=== PATIENT | female | born 1935 | race Caucasian/White ===

== ENCOUNTER 2017-10-06 20:01 | Observation (INO) | payer OTHER ==
[~2017-10-06] VITALS: Ht 160 cm; Wt 86.3 kg
[2017-10-06 21:14] LABS: BASOPHIL (%) 0.4 % (0-1); BASOPHIL COUNT 0.1 K/uL (0-0.1); EOSINOPHIL (%) 2.5 % (0-5); EOSINOPHIL COUNT 0.3 K/uL (0-0.3); HEMATOCRIT 32.5 % (36.0-46.0); HEMOGLOBIN 10.2 G/DL (11.9-15.5); IMMATURE GRANULOCYTE (%) 0.4 % (0.0-0.7); LYMPHOCYTE (%) 20.7 % (15-42); LYMPHOCYTE COUNT 2.8 K/uL (1.0-2.8); MCH 26.5 PG (29.0-34.0); MCHC 31.4 G/DL (30.0-36.0); MCV 84.4 FL (83-99); MONOCYTE (%) 6.3 % (3-12); MONOCYTE COUNT 0.9 K/uL (0-0.8); NEUTROPHIL (%) 69.7 % (45-76); NEUTROPHIL COUNT 9.4 K/uL (1.8-6.4); PLATELET COUNT 282 K/uL (156-360); RBC DIS.WIDTH-CV 15.7 % (11.8-14.6); RED BLOOD COUNT 3.85 M/uL (3.80-5.20); WHITE BLOOD COUNT 13.5 K/uL (4.1-10.2)
[2017-10-06 21:24] LABS: ALBUMIN 3.8 g/dL (3.2-4.8); CHLORIDE 108 mEq/L (99-109); POTASSIUM 3.5 mEq/L (3.7-5.4); SODIUM 141 mEq/L (136-147)
[2017-10-06 21:26] LABS: TOTAL PROTEIN 7.3 g/dL (6.4-8.3)
[2017-10-06 21:28] LABS: TOTAL BILIRUBIN 0.5 mg/dL (0.0-1.0)
[2017-10-06 21:30] LABS: ALKALINE PHOSPHATASE 100 IU/L (3-129); CREATININE 0.7 mg/dL (0.6-1.3); GFR ESTIMATE (CALCULATED) > 59 mL/min/
[2017-10-06 21:31] LABS: AST (GOT) 26 IU/L (2-34); UREA NITROGEN (BUN) 18 mg/dL (9-23)
[2017-10-06 21:32] LABS: DIRECT BILIRUBIN 0.1 mg/dL (0.0-0.3)
[2017-10-06 21:33] LABS: ALT (GPT) 15 IU/L (3-49); LIPASE 7 U/L (1.0-51.0)
[2017-10-06 21:34] LABS: GLUCOSE 41 mg/dL (70-99)
[2017-10-06 21:50] LABS: BILIRUBIN NEGATIVE; BLOOD NEGATIVE; COLOR YELLOW ((YELLOW)); GLUCOSE (STRIP) >=500; KETONES 5; LEUKOCYTES TRACE; NITRITE POSITIVE; PROTEIN (STRIP) 30; UROBILINOGEN 0.2 MG/DL (0.2-1.0)
[2017-10-06 21:51] LABS: APPEARANCE CLOUDY ((CLEAR))
[2017-10-06 22:10] LABS: EPITHELIAL CELLS 1+ /HPF; MUCUS NONE SEEN /LPF; RED BLOOD CELLS NONE SEEN /HPF (0-5)
[2017-10-06 22:11] LABS: BACTERIA 4+ /HPF; WHITE BLOOD CELLS 20-30 /HPF (0-5)
[2017-10-07] MEDS ORDERED: LISINOPRIL10 MG PO (01:55)
[2017-10-07] MEDS ORDERED: HYDROCHLOROTHIA25 MG PO (01:56)
[2017-10-07] MEDS ORDERED: METOPROLOL SUC100 MG PO (01:57)
[2017-10-07] MEDS ORDERED: AMLODIPINE BESY10 MG PO (01:57)
[2017-10-07] MEDS ORDERED: SYNTHROID150 MCG PO (01:58)
[2017-10-07] MEDS ORDERED: ZYRTEC10 M2 PO (01:59)
[2017-10-07] MEDS ORDERED: MULTIPLE VITAM1 EAC4 PO (02:00)
[2017-10-07] MEDS ORDERED: ASCORBIC ACID500 M3 PO (02:00)
[2017-10-07] MEDS ORDERED: VITAMIN D31000 UNI2 PO (02:01)
[2017-10-07] MEDS ORDERED: POTASSIUM GLUCO99 M1 PO (02:01)
[2017-10-07] MEDS ORDERED: ASPIRIN81 M2 PO (02:01)
[2017-10-07] MEDS ORDERED: BRILINTA90 MG PO (02:02)
[2017-10-07] MEDS ORDERED: ZANTAC75 M1 PO (02:02)
[2017-10-07] MEDS ORDERED: METFORMIN HCL500 MG PO (02:03)
[2017-10-07] MEDS ORDERED: LIPITOR40 MG PO (02:04)
[2017-10-07] MEDS ORDERED: NOVOLIN,HU100 UNITS/ SC (02:05)
[2017-10-07] MEDS ORDERED: NOVOLOG PE100 UNITS/ SC (02:06)
[2017-10-07] MEDS ORDERED: VICODIN 5-3001 EACH PO (02:07)
[2017-10-07] MEDS ORDERED: VALIUM2 MG PO (02:08)
[2017-10-07] MEDS ORDERED: FLEXERIL10 MG PO (02:08)
[2017-10-07] MEDS ORDERED: NITROGLYCERIN0.4 MG SL (02:09)
[2017-10-07 02:43] VITALS: BP 139/65
[2017-10-07 08:30] VITALS: BP 132/59
[2017-10-07 15:39] VITALS: BP 134/93
[2017-10-07 20:00] VITALS: BP 156/82
[2017-10-07 23:11] VITALS: BP 135/89
[2017-10-08 04:26] VITALS: BP 127/60
[2017-10-08 05:44] LABS: HEMATOCRIT 30.1 % (36.0-46.0); HEMOGLOBIN 9.2 G/DL (11.9-15.5); MCHC 30.6 G/DL (30.0-36.0); PLATELET COUNT 256 K/uL (156-360); RBC DIS.WIDTH-CV 15.6 % (11.8-14.6); RBC DIS.WIDTH-SD 48.6 % (39-53); RED BLOOD COUNT 3.54 M/uL (3.80-5.20)
[2017-10-08 06:20] LABS: CHLORIDE 105 MEQ/L (99-109); CREATININE 0.7 MG/DL (0.6-1.3); GFR ESTIMATE (CALCULATED) > 59 mL/min/; SODIUM 135 MEQ/L (136-147); UREA NITROGEN (BUN) 18 mg/dL (9-23)
[2017-10-08 06:23] LABS: GLUCOSE 271 mg/dL (70-99); POTASSIUM 4.7 MEQ/L (3.7-5.4)
[2017-10-08 08:55] VITALS: BP 113/54
[2017-10-08 11:15] VITALS: BP 123/60
[2017-10-08] MEDS ORDERED: AMOXICILLIN500 M1 PO (13:24)
== END 2017-10-08 14:34 | disposition home or self-care (01) ==
LOC: EME 20:01 → EDOF 10-07 00:25 → ENRESERV 10-07 00:25 → EDOF 10-07 00:25 → 5WEST 10-07 00:25 → ENRESERV 10-07 01:00 → 5WEST 10-07 02:22
PROVIDERS: Hospitalist; Physician Assistant
DX: N30.00 Acute cystitis without hematuria (principal); B96.20 Unspecified Escherichia coli [E. coli] as the cause of diseases classified elsewhere; G30.9 Alzheimer's disease, unspecified; F02.80 Dementia in other diseases classified elsewhere, unspecified severity, without behavioral disturbance, psychotic disturbance, mood disturbance, and anxiety; F01.50 Vascular dementia, unspecified severity, without behavioral disturbance, psychotic disturbance, mood disturbance, and anxiety; R45.1 Restlessness and agitation; E11.649 Type 2 diabetes mellitus with hypoglycemia without coma; I10 Essential (primary) hypertension; I25.10 Atherosclerotic heart disease of native coronary artery without angina pectoris; Z95.1 Presence of aortocoronary bypass graft; K44.9 Diaphragmatic hernia without obstruction or gangrene; Z87.442 Personal history of urinary calculi; G89.29 Other chronic pain; Z78.1 Physical restraint status; Z90.710 Acquired absence of both cervix and uterus; Z88.1 Allergy status to other antibiotic agents; Z88.0 Allergy status to penicillin; Z88.2 Allergy status to sulfonamides; Z88.5 Allergy status to narcotic agent; Z82.49 Family history of ischemic heart disease and other diseases of the circulatory system; Z83.3 Family history of diabetes mellitus; Z80.9 Family history of malignant neoplasm, unspecified
CPT/HCPCS: 74177; 80048; 80076; 81003; 82948; 83605; 83690; 85025; 85027; 87040; 87077; 87086; 87186; 99281; 99285; G0378; G8978 GP CJ; G8979 GP CI; G8980 CJ; G8987 GO CI; G8988 GO CH; G8989 GO CI; J0696; J1650; J1815; J1885; J2060; J3010; J7030